=== PATIENT | female | born 1955 | race Caucasian/White ===

== ENCOUNTER 2021-12-19 17:30 | Emergency (ER) | payer OTHER ==
[~2021-12-19] VITALS: Ht 154.9 cm; Wt 73.0 kg
[2021-12-19 17:42] VITALS: BP 152/68
[2021-12-19] MEDS ORDERED: ACETAMINOPHEN 325MG TABLET PO ONE (18:00)
== END 2021-12-19 19:56 | disposition home or self-care (01) ==
LOC: ER 17:30
DX: S00.01XA Abrasion of scalp, initial encounter (principal); X58.XXXA Exposure to other specified factors, initial encounter; Y93.89 Activity, other specified; Y92.89 Other specified places as the place of occurrence of the external cause; Y99.8 Other external cause status; E78.00 Pure hypercholesterolemia, unspecified; Z86.73 Personal history of transient ischemic attack (TIA), and cerebral infarction without residual deficits
CPT/HCPCS: 99284